=== PATIENT | female | born 1990 | race Caucasian/White ===

== ENCOUNTER 2016-07-03 17:23 | Outpatient (CLI) | payer MEDICAID ==
[2016-07-03 18:21] LABS: BILIRUBIN,URINE NEGATIVE (NEGATIVE); PH,URINE 6.5 PH (5.0-7.5)
[2016-07-03 18:23] VITALS: BP 124/82
[2016-07-03 18:33] LABS: UR CULTURE IF IND NOT INDICATED; WBC,URINE 0-3 /HPF (0-5)
== END 2016-07-03 18:40 | disposition home or self-care (01) ==
LOC: WFO 17:23 → OB 17:25 → WFO 18:40
PROVIDERS: ATTEND Obstetrics & Gynecology
DX: O99.89 Other specified diseases and conditions complicating pregnancy, childbirth and the puerperium (principal); R10.2 Pelvic and perineal pain; Z3A.19 19 weeks gestation of pregnancy
CPT/HCPCS: 81001; 87086; 99213

== ENCOUNTER 2017-08-29 16:14 | Emergency (ER) | payer MEDICAID ==
[2017-08-29 16:21] VITALS: BP 139/93
--- NOTE | 2017-08-29 16:43 | ED Physician Documentation ---
History of Present Illness - Stated complaint Stated Complaint: R EAR PAIN - Chief complaint Chief Complaint: Heent - History obtained from History obtained from: Patient - History of Present Illness Pain level max: 6 Pain level now: 5 - Additonal information Additional information: Patient is a 27-year-old female who has a long-standing history of recurrent ear infections and eustachian tube dysfunction. She has been treated 4 times this year for ear infections. Started having right ear pain again a few days ago. No fevers. Does have some nasal congestion. Is currently on medications for her allergies. Nothing makes the pain better or worse. Has an appointment with ENT in 3 weeks Review of Systems Constitutional: denies: Fever, Chills Throat: denies: Sore throat Respiratory: denies: Cough, Wheezing GI: denies: Abdominal Pain, Nausea, Vomiting, Diarrhea Skin: denies: Rash Musculoskeletal: denies: Neck pain, Back pain Neurologic: denies: Headache PD PAST MEDICAL HISTORY - Past Medical History Past Medical History: No Psych: Anxiety - Past Surgical History HEENT: Myringotomy (tubes) - Present Medications Home Medications: Ambulatory Orders Medication Instructions Recorded Confirmed Amox/Clav 875/125 [Augmentin] 1 each PO Q12H #20 tablet 08/29/17 Cetirizine HCl/Pseudoephedrine 1 each PO BID PRN #30 tab.er.12h 08/29/17 [Zyrtec-D Tablet] predniSONE [Prednisone] 40 mg PO DAILY #10 tablet 08/29/17 - Allergies Allergies/Adverse Reactions: Allergies Allergy/AdvReac Type Severity Reaction Status Date / Time No Known Drug Allergies Allergy Verified 08/29/17 16:21 - Social History Does the pt smoke?: No Smoking Status: Never smoker Does the pt drink ETOH?: Yes Does the pt have substance abuse?: No - Immunizations Immunizations are current?: Yes - POLST Patient has POLST: No PD ED PE NORMAL - Vitals Vital signs reviewed: Yes - General General: Alert and oriented X 3, No acute distress - HEENT HEENT: PERRL, Moist mucous membranes, Pharynx benign, Other (Left tympanic membrane is normal. Right tympanic membrane is erythematous, dull, bulging with loss of landmarks. Canal is normal.) - Neck Neck: Supple, no meningeal sign, No adenopathy - Cardiac Cardiac: RRR, Strong equal pulses - Respiratory Respiratory: No respiratory distress, Clear bilaterally - Derm Derm: Warm and dry - Neuro Neuro: Alert and oriented X 3 - Psych Psych: Normal mood, Normal affect Results - Vitals Vitals: Vital Signs - 24 hr 08/29/17 16:19 Temperature 36.1 C L Heart Rate 87 Respiratory 18 Rate Blood Pressure 139/93 H O2 Saturation 100 Oxygen O2 Source Room air PD MEDICAL DECISION MAKING - ED course Complexity details: considered differential, d/w patient ED course: Patient is a 27-year-old female with what appears to be an acute otitis media. Will place on antibiotics for this. Also has known eustachian tube dysfunction will trial her on steroids, decongestants and allergy medication. We will have her follow-up closely with her doctor for further evaluation and care. She is well-appearing, nontoxic. Afebrile. No evidence of mastoiditis. Patient counseled regarding signs and symptoms for which I believe and urgent re- evaluation would be necessary. Patient with good understanding of and agreement to plan and is comfortable going home at this time This document was made in part using voice recognition software. While efforts are made to proofread this document, sound alike and grammatical errors may occur. - Sepsis Event Vital Signs: Vital Signs - 24 hr 08/29/17 16:19 Temperature 36.1 C L Heart Rate 87 Respiratory 18 Rate Blood Pressure 139/93 H O2 Saturation 100 Oxygen O2 Source Room air Departure - Departure Disposition: 01 Home, Self Care Clinical Impression: Otitis media Qualifiers: Otitis media type: suppurative Chronicity: acute Laterality: right Recurrence: not specified as recurrent Spontaneous tympanic membrane rupture: without spontaneous rupture Qualified Code(s): H66.001 - Acute suppurative otitis media without spontaneous rupture of ear drum, right ear Condition: Good Instructions: ED Otitis Media Acute Adult Follow-Up: Livia Johnson PA-C [Primary Care Provider] - Within 1 week Prescriptions: Amox/Clav 875/125 [Augmentin] 1 each PO Q12H #20 tablet Cetirizine HCl/Pseudoephedrine [Zyrtec-D Tablet] 1 each PO BID PRN #30 tab.er.12h PRN Reason: Nasal Congestion predniSONE [Prednisone] 40 mg PO DAILY #10 tablet Comments: We will try rearranging your medications and see if this helps you. Return if you worsen. This should improve over the next few days. Make sure to follow- up with ENT for further care. Discharge Date/Time: 08/29/17 16:49
[2017-08-29] MEDS: DEXAMETHASONE 10 MG/ML VIAL PO STA (16:46)
== END 2017-08-29 16:49 | disposition home or self-care (01) ==
LOC: ED 16:14
DX: H66.004 Acute suppurative otitis media without spontaneous rupture of ear drum, recurrent, right ear (principal); H69.80 Other specified disorders of Eustachian tube, unspecified ear
CPT/HCPCS: 99283

== ENCOUNTER 2017-10-29 17:51 | Emergency (ER) | payer MEDICAID ==
[2017-10-29 18:44] LABS: BASOPHILS # (AUTO) 0.1 10^3/uL (0.0-0.1); BASOPHILS % (AUTO) 0.6 %; EOSINOPHILS # (AUTO) 0.7 10^3/uL (0.0-0.7); EOSINOPHILS % (AUTO) 8.1 %; HGB - HEMOGLOBIN 13.9 g/dL (12.0-16.0); LYMPHOCYTES # (AUTO) 2.3 10^3/uL (1.5-3.5); LYMPHOCYTES % (AUTO) 26.8 %; MEAN CORPUSCULAR HEMOGLOBIN 29.4 pg (27.0-31.0); MEAN CORPUSCULAR HGB CONC 33.6 g/dL (32.0-36.0); MEAN CORPUSCULAR VOLUME 87.3 fL (81.0-99.0); MEAN PLATELET VOLUME 7.4 fL (7.9-10.8); MONOCYTES # (AUTO) 0.7 10^3/uL (0.0-1.0); NEUTROPHILS # (AUTO) 4.9 10^3/uL (1.5-6.6); NEUTROPHILS % (AUTO) 56.5 %; PLT - PLATELET COUNT 258 10^3/uL (130-450); RED BLOOD COUNT 4.75 10^6/uL (4.20-5.40); RED CELL DISTRIBUTION WIDTH 13.2 % (12.0-15.0); WHITE BLOOD COUNT 8.8 x10^3/uL (4.8-10.8)
[2017-10-29 18:55] LABS: ALBUMIN 4.6 g/dL (3.2-5.5); ALBUMIN/GLOBULIN RATIO 1.5 (1.0-2.2); BILIRUBIN,TOTAL 0.4 mg/dL (0.2-1.0); CALCIUM 9.3 mg/dL (8.5-10.3); CREATININE 0.6 mg/dL (0.4-1.0); TOTAL PROTEIN 7.7 g/dL (6.7-8.2)
[2017-10-29 18:59] LABS: BILIRUBIN,URINE NEGATIVE (NEGATIVE); GLUCOSE, URINE (UA) NEGATIVE (NEGATIVE); KETONES,URINE (UA) NEGATIVE (NEGATIVE); LEUKOCYTE ESTERASE, URINE NEGATIVE (NEGATIVE); NITRITE,URINE NEGATIVE (NEGATIVE); OCCULT BLOOD,URINE SMALL (NEGATIVE); PH,URINE 6.5 PH (5.0-7.5); PROTEIN,URINE NEGATIVE (NEGATIVE); UROBILINOGEN,URINE 0.2 (NORMAL) E.U./dL (NORMAL)
[2017-10-29 19:08] LABS: BACTERIA,URINE None Seen /HPF (None Seen); CLARITY,URINE CLEAR (CLEAR); RBC,URINE None Seen /HPF (0-5); SQUAMOUS EPITHELIAL CELL,UR MOD Squamous (<= Few)
--- NOTE | 2017-10-29 20:22 | Ultrasound Report ---
Reason: with pain Procedure Date: 10/29/2017 Accession Number: [id number] / [id number] Procedure: US - OB First Trimester CPT Code: FULL RESULT: EXAM: FIRST TRIMESTER OBSTETRIC ULTRASOUND (Less than 11 weeks) EXAM DATE: 10/29/2017 07:14 PM. CLINICAL HISTORY: with pain. LMP: 09/13/2017. COMPARISONS: None. TECHNIQUE: Transabdominal and transvaginal ultrasound examination with static image documentation. CLINICAL DATES: EGA 6 weeks 4 days with KIKI 06/20/2018 based on LMP. ASSESSMENT: Gestational Sac: Single intrauterine. Mean gestational sac diameter: 23 mm = 6 weeks 6 days. Embryo: CRL (crown-rump length) 4.1 mm = 6 weeks 1 day. Cardiac activity: 119 beats per minute. Yolk sac: 3 mm. Amniotic fluid: Not accurately assessed at this gestational age. Early placenta: Not visible at this gestational age. Other: 1.7 x 2.1 cm perigestational fluid collection. MATERNAL STRUCTURES: Uterus: Anteverted. Unremarkable. Cervix: Closed. Right Ovary/Adnexa: The ovary measures 3.2 x 2.0 x 2.4 cm, volume 7.6 cc. Normal blood flow. 2.0 x 2.0 x 1.5 cm corpus luteal cyst. Left Ovary/Adnexa: The ovary measures 3.4 x 1.6 x 1.7 cm, volume 4.9 cc. Normal blood flow. 1.7 x 1.4 x 1.1 cm simple cyst. Free Fluid: None. Unremarkable. Other: None. IMPRESSION: 1. Single viable intrauterine at EGA 6 weeks 1 day with KIKI 06/23/2018 based on crown-rump length, which is concordant with clinical dates. 2. Assigned dating is KIKI 06/20/2018 based on LMP. 3. 1.7 x 2.1 cm perigestational fluid collection. RADIA
--- NOTE | 2017-10-29 21:12 | ED Physician Documentation ---
History of Present Illness - Stated complaint Stated Complaint: FEMALE /6 WK OB - Chief complaint Chief Complaint: Abd Pain - Additonal information Additional information: 27-year-old female presents the emergency department with lower abdominal cramping and vaginal spotting since early this morning. The patient reports the cramping has mostly resolved and she is only had very scant episodes of vaginal spotting. The patient denies any focal area of abdominal pain. The patient denies nausea, vomiting, diarrhea or fever or flank pain. Symptoms are described as mild. No other associated symptoms. No triggering factors. Review of Systems Constitutional: denies: Fever Eyes: denies: Discharge Ears: denies: Ear pain Nose: denies: Congestion Cardiac: denies: Chest pain / pressure Respiratory: denies: Dyspnea GI: reports: Abdominal Pain (Abdominal cramps). denies: Abdominal Swelling, Nausea, Vomiting, Constipation : reports: Vaginal bleeding Skin: denies: Rash Musculoskeletal: denies: Neck pain Neurologic: denies: Generalized weakness PD PAST MEDICAL HISTORY - Past Medical History Respiratory: Asthma Psych: Anxiety - Past Surgical History HEENT: Myringotomy (tubes) - Allergies Allergies/Adverse Reactions: Allergies Allergy/AdvReac Type Severity Reaction Status Date / Time No Known Drug Allergies Allergy Verified 10/29/17 17:56 - Social History Does the pt smoke?: No Smoking Status: Never smoker Does the pt drink ETOH?: Yes Does the pt have substance abuse?: No - Immunizations Immunizations are current?: Yes - POLST Patient has POLST: No PD ED PE NORMAL - General General: Alert and oriented X 3, No acute distress - HEENT HEENT: Atraumatic, PERRL, EOMI, Ears normal - Cardiac Cardiac: RRR - Respiratory Respiratory: No respiratory distress, Clear bilaterally - Abdomen Abdomen: Soft, Non tender, Non distended - Derm Derm: Normal color - Extremities Extremities: No deformity - Neuro Neuro: Alert and oriented X 3, Normal speech - Psych Psych: Normal affect Results - Vitals Vitals: Vital Signs - 24 hr 10/29/17 10/29/17 17:54 21:28 Temperature 35.8 C L Heart Rate 103 H 84 Respiratory 16 16 Rate Blood Pressure 132/94 H 129/75 O2 Saturation 100 100 Oxygen O2 Source Room air - Labs Labs: Laboratory Tests 10/29/17 10/29/17 10/29/17 18:10 18:37 18:37 WBC 8.8 RBC 4.75 Hgb 13.9 Hct 41.4 MCV 87.3 MCH 29.4 MCHC 33.6 RDW 13.2 Plt Count 258 MPV 7.4 L Neut # (Auto) 4.9 Lymph # (Auto) 2.3 [place]aston # (Auto) 0.7 Eos # (Auto) 0.7 Baso # (Auto) 0.1 Absolute Nucleated RBC 0.00 Nucleated RBC % 0.0 Sodium 135 Potassium 3.4 L Chloride 102 Carbon Dioxide 25 Anion Gap 8.0 BUN 10 Creatinine 0.6 Estimated GFR (MDRD) 122 Glucose 99 Calcium 9.3 Total Bilirubin 0.4 AST 26 ALT 43 Alkaline Phosphatase 51 Total Protein 7.7 Albumin 4.6 Globulin 3.1 Albumin/Globulin Ratio 1.5 Lipase 31 HCG, Quant Urine Color YELLOW Urine Clarity CLEAR Urine pH 6.5 Ur Specific [place] 1.010 Urine Protein NEGATIVE Urine Glucose (UA) NEGATIVE Urine Ketones NEGATIVE Urine Occult Blood SMALL H Urine Nitrite NEGATIVE Urine Bilirubin NEGATIVE Urine Urobilinogen 0.2 (NORMAL) Ur Leukocyte Esterase NEGATIVE Urine RBC None Seen Urine WBC 0-3 Ur Squamous Epith Cells MOD Squamous H Urine Bacteria None Seen Ur Microscopic Review INDICATED Urine Culture Comments NOT INDICATED Blood Type 10/29/17 10/29/17 18:37 18:37 WBC RBC Hgb Hct MCV MCH MCHC RDW Plt Count MPV Neut # (Auto) Lymph # (Auto) [place]aston # (Auto) Eos # (Auto) Baso # (Auto) Absolute Nucleated RBC Nucleated RBC % Sodium Potassium Chloride Carbon Dioxide Anion Gap BUN Creatinine Estimated GFR (MDRD) Glucose Calcium Total Bilirubin AST ALT Alkaline Phosphatase Total Protein Albumin Globulin Albumin/Globulin Ratio Lipase HCG, Quant 30925.00 Urine Color Urine Clarity Urine pH Ur Specific [place] Urine Protein Urine Glucose (UA) Urine Ketones Urine Occult Blood Urine Nitrite Urine Bilirubin Urine Urobilinogen Ur Leukocyte Esterase Urine RBC Urine WBC Ur Squamous Epith Cells Urine Bacteria Ur Microscopic Review Urine Culture Comments Blood Type A POSITIVE - Rads (name of study) US ob Radiology: Final report received (Single viable intrauterine at EGA 6 weeks 1 day with KIKI. 1.7 x 2.1 cm perigestational fluid collection. ) PD MEDICAL DECISION MAKING - ED course ED course: The patient's ultrasound shows a viable intrauterine , I discussed with the patient the findings on her examination. I recommended nothing per vagina until her symptoms resolved and until she is cleared by OB. The patient understands and agrees. I discussed warning signs and recommended returning to the emergency department immediately for any worsening or concerns. - Sepsis Event Vital Signs: Vital Signs - 24 hr 10/29/17 10/29/17 17:54 21:28 Temperature 35.8 C L Heart Rate 103 H 84 Respiratory 16 16 Rate Blood Pressure 132/94 H 129/75 O2 Saturation 100 100 Oxygen O2 Source Room air Departure - Departure Disposition: 01 Home, Self Care Clinical Impression: Vaginal bleeding affecting early , Abdominal pain affecting Condition: Good Instructions: Preg 1st Trimester, Bleeding Early Preg Follow-Up: Livia Johnson PA-C [Primary Care Provider] - Comments: Please return to the emergency department for any worsening or any concerns.
[2017-10-29 21:28] VITALS: BP 129/75
== END 2017-10-29 21:49 | disposition home or self-care (01) ==
LOC: ED 17:51
DX: O20.9 Hemorrhage in early pregnancy, unspecified (principal); Z3A.01 Less than 8 weeks gestation of pregnancy; O99.89 Other specified diseases and conditions complicating pregnancy, childbirth and the puerperium; R10.30 Lower abdominal pain, unspecified
CPT/HCPCS: 36415; 76801; 76817; 80053; 81001; 81003; 83690; 84702; 85025; 86900; 86901; 87086; 99283

== ENCOUNTER 2018-04-26 20:41 | Outpatient (CLI) | payer MEDICAID ==
[2018-04-26 21:14] VITALS: BP 125/83
== END 2018-04-26 21:42 ==
LOC: WFO 20:41 → FBP 20:44 → WFO 21:42
PROVIDERS: ATTEND Obstetrics & Gynecology
DX: O99.513 Diseases of the respiratory system complicating pregnancy, third trimester (principal); J11.1 Influenza due to unidentified influenza virus with other respiratory manifestations; Z3A.32 32 weeks gestation of pregnancy
CPT/HCPCS: 99212

== ENCOUNTER 2018-04-26 21:55 | Emergency (ER) | payer MEDICAID ==
--- NOTE | 2018-04-26 23:20 | ED Physician Documentation ---
PD HPI URI - Stated complaint Stated Complaint: SOA/HX ASTHMA - Chief complaint Chief Complaint: Resp - History obtained from History obtained from: Patient - History of Present Illness Timing - onset: How many days ago (3) Timing duration: Days (3) Timing details: Gradual onset, Still present Associated symptoms: Nasal congestion, Dry cough, Dyspnea (wheezing). No: Fever, NVD Contributing factors: COPD / asthma (has MDI at home. Had not used it much prior to but has had more asthma symptoms the past few months, and now more with current illness.). No: Sick contact Improves by: No: Medication (not improved with albuterol MDI at home.) Worsened by: Activity Similar symptoms before: Diagnosis (gets asthma exac with URIs in the past.) Recently seen: Not recently seen Review of Systems Constitutional: reports: Myalgias. denies: Fever Nose: reports: Congestion Throat: denies: Sore throat Cardiac: denies: Chest pain / pressure Respiratory: reports: Dyspnea, Cough, Wheezing GI: denies: Vomiting, Diarrhea : reports: Now EGA (22 weeks). denies: Vaginal bleeding Skin: denies: Rash Neurologic: reports: Generalized weakness. denies: Altered mental status, Headache PD PAST MEDICAL HISTORY - Past Medical History Respiratory: Asthma Psych: Anxiety - Past Surgical History Past Surgical History: No HEENT: Myringotomy (tubes) - Present Medications Home Medications: Ambulatory Orders Medication Instructions Recorded Confirmed Albuterol Sulf [Ventolin Hfa 2 - 3 puffs INH Q4HR PRN #1 inhaler 04/27/18 Inhaler] Amiodarone [Pacerone] 100 mg PO DAILY 04/27/18 04/27/18 Amoxicillin 500 mg PO TID #21 capsule 04/27/18 Aspirin 325 mg PO DAILY 04/27/18 04/27/18 Benzonatate [Tessalon Perle] 100 mg PO TID PRN #20 capsule 04/27/18 Dexamethasone [Decadron] 4 mg PO DAILY #7 tablet 04/27/18 Furosemide 20 mg PO DAILY 04/27/18 04/27/18 Hydrochlorothiazide 12.5 mg PO DAILY 04/27/18 04/27/18 Levothyroxine [Synthroid] 50 mcg PO DAILY 04/27/18 04/27/18 Magnesium 250 mg PO DAILY 04/27/18 04/27/18 Metoprolol Succinate [Toprol Xl] 25 mg PO DAILY 04/27/18 04/27/18 Ursodiol [Eladio 250] 250 mg PO DAILY 04/27/18 04/27/18 - Allergies Allergies/Adverse Reactions: Allergies Allergy/AdvReac Type Severity Reaction Status Date / Time No Known Drug Allergies Allergy Verified 10/29/17 17:56 - Social History Does the pt smoke?: No Smoking Status: Never smoker Does the pt drink ETOH?: Yes Does the pt have substance abuse?: No - Immunizations Immunizations are current?: Yes - POLST Patient has POLST: No PD ED PE NORMAL - Vitals Vital signs reviewed: Yes - General General: Alert and oriented X 3, Well developed/nourished, Other (some wheezing, but able to talk in sentences. ) - HEENT HEENT: Ears normal, Pharynx benign - Neck Neck: Supple, no meningeal sign, Other (mild anterior adenopathy) - Cardiac Cardiac: RRR, No murmur - Respiratory Respiratory: No: Clear bilaterally (exp wheezing. No coarse sounds. ) - Abdomen Abdomen: Soft, Non tender, Other (gravid with fundus at umbilicus. ) Results - Vitals Vitals: Vital Signs - 24 hr 04/26/18 04/27/18 04/27/18 21:58 00:10 00:15 Temperature 36.3 C L Heart Rate 100 88 98 Respiratory 20 20 20 Rate Blood Pressure 133/91 H 128/88 H O2 Saturation 100 04/27/18 04/27/18 00:40 00:44 Temperature 36.3 C L Heart Rate 103 H Respiratory 18 16 Rate Blood Pressure 121/87 H O2 Saturation 100 96 Oxygen O2 Source Room air PD MEDICAL DECISION MAKING - ED course Complexity details: considered differential (Seems URI with cough and asthma exac. Given history of asthma, may have some benefit with abx, though more likely viral. ), d/w patient Departure - Departure Disposition: 01 Home, Self Care Clinical Impression: Upper respiratory infection Qualifiers: URI type: unspecified URI Qualified Code(s): J06.9 - Acute upper respiratory infection, unspecified Acute asthma exacerbation Qualifiers: Asthma severity: mild Asthma persistence: intermittent Qualified Code(s): J45.21 - Mild intermittent asthma with (acute) exacerbation Condition: Stable Record reviewed to determine appropriate education?: Yes Prescriptions: Albuterol Sulf [Ventolin Hfa Inhaler] 2 - 3 puffs INH Q4HR PRN #1 inhaler PRN Reason: Shortness Of Air/Wheezing Amoxicillin 500 mg PO TID #21 capsule Benzonatate [Tessalon Perle] 100 mg PO TID PRN #20 capsule PRN Reason: Cough Dexamethasone [Decadron] 4 mg PO DAILY #7 tablet Comments: Stay well-hydrated. Continue your inhaler albuterol inhaler 2-3 puffs 4 times a day regularly and extra times as needed for wheezing and cough. Add Decadron steroid daily for a week. Amoxicillin 3 times a day for a week for possible bacterial infection. This may be just viral which case the other medicines will help. Add Tessalon if needed for cough. These are all fine in at this point. Tylenol if needed for fevers. No NSAIDs. Discharge Date/Time: 04/27/18 00:49
[2018-04-26] MEDS ORDERED: BENZONATATE 100 MG CAPSULE PO STA (23:36)
[2018-04-26] MEDS ORDERED: ALBUTEROL NEB 2.5 MG/3 ML INH STA (23:36)
[2018-04-26] MEDS ORDERED: DEXAMETHASONE 10 MG/ML VIAL PO STA (23:36)
[2018-04-26] MEDS ORDERED: AMOXICILLIN 250 MG CAPSULE PO STA (23:37)
[2018-04-27 00:45] VITALS: BP 121/87
== END 2018-04-27 00:49 | disposition home or self-care (01) ==
LOC: ED 21:55
DX: O99.512 Diseases of the respiratory system complicating pregnancy, second trimester (principal); J45.21 Mild intermittent asthma with (acute) exacerbation; J06.9 Acute upper respiratory infection, unspecified; Z3A.22 22 weeks gestation of pregnancy; Z79.82 Long term (current) use of aspirin
CPT/HCPCS: 94640; 99283; A9270; 99212

== ENCOUNTER 2018-10-05 08:00 | Outpatient (CLI) | payer MEDICAID ==
[2018-10-05 18:37] LABS: BASOPHILS % (AUTO) 0.2 %; EOSINOPHILS # (AUTO) 0.5 10^3/uL (0.0-0.7); EOSINOPHILS % (AUTO) 6.3 %; HGB - HEMOGLOBIN 12.5 g/dL (12.0-16.0); LYMPHOCYTES # (AUTO) 1.2 10^3/uL (1.5-3.5); LYMPHOCYTES % (AUTO) 14.5 %; MEAN CORPUSCULAR HEMOGLOBIN 27.5 pg (27.0-31.0); MEAN CORPUSCULAR HGB CONC 31.6 g/dL (32.0-36.0); MEAN CORPUSCULAR VOLUME 86.8 fL (81.0-99.0); MEAN PLATELET VOLUME 9.8 fL (7.9-10.8); MONOCYTES # (AUTO) 0.5 10^3/uL (0.0-1.0); NEUTROPHILS # (AUTO) 5.9 10^3/uL (1.5-6.6); NEUTROPHILS % (AUTO) 72.8 %; PLT - PLATELET COUNT 247 10^3/uL (130-450); RED BLOOD COUNT 4.55 10^6/uL (4.20-5.40); RED CELL DISTRIBUTION WIDTH 12.9 % (12.0-15.0); WHITE BLOOD COUNT 8.1 x10^3/uL (4.8-10.8)
[2018-10-05 18:57] LABS: RHEUMATOID FACTOR NEGATIVE (Negative)
[2018-10-05 19:00] LABS: ALBUMIN 4.3 g/dL (3.2-5.5); ALBUMIN/GLOBULIN RATIO 1.1 (1.0-2.2); BILIRUBIN,TOTAL 0.6 mg/dL (0.2-1.0); CALCIUM 9.4 mg/dL (8.5-10.3); CREATININE 0.6 mg/dL (0.4-1.0); CRP - C-REACTIVE PROTEIN 9.3 mg/dL (0-1.0); TOTAL PROTEIN 8.3 g/dL (6.7-8.2)
== END 2018-10-05 23:59 | disposition home or self-care (01) ==
LOC: LAB.WCP 08:00
PROVIDERS: ATTEND Physician Assistant Medical
DX: M79.10 Myalgia, unspecified site (principal)
CPT/HCPCS: 36415; 80053; 82306; 84443; 85025; 85651; 86140; 86430

== ENCOUNTER 2021-10-26 18:41 | Emergency (ER) | payer MEDICAID ==
[2021-10-26 18:48] VITALS: BP 128/88
--- NOTE | 2021-10-26 19:00 | ED Physician Documentation ---
History of Present Illness - Stated complaint Stated Complaint: R EAR PX - Chief complaint Chief Complaint: Heent - Additonal information Additional information: 31-year-old female presents emergency department for evaluation of 3 days right ear pain. Reports a history of recurrent inner ear infections. Returned from [place] 1 week ago. She did go swimming. She has had no cough or fevers. No drainage. She does have muffled hearing however. Review of Systems Constitutional: denies: Fever, Chills Ears: reports: Ear pain. denies: Drainage/discharge, Tinnitus/ringing, Foreign body Nose: reports: Reviewed and negative Throat: reports: Reviewed and negative Cardiac: reports: Reviewed and negative PD PAST MEDICAL HISTORY - Past Medical History Respiratory: Asthma Psych: Anxiety - Past Surgical History Past Surgical History: No HEENT: Myringotomy (tubes) - Present Medications Home Medications: Ambulatory Orders Medication Instructions Recorded Confirmed Albuterol Sulf [Ventolin Hfa 2 - 3 puffs INH Q4HR PRN #1 inhaler 04/27/18 10/26/21 Inhaler] DULoxetine [Cymbalta] 40 mg PO DAILY 10/26/21 10/26/21 Fluticasone Propion/Salmeterol 1 puffs INH DAILY 10/26/21 10/26/21 [Fluticasone-Salmeterol 250-50] Montelukast [Singulair] 10 mg PO DAILY 10/26/21 10/26/21 Ofloxacin [Ofloxacin Otic drops] 10 ml OT BID #10 ml 10/26/21 - Allergies Allergies/Adverse Reactions: Allergies Allergy/AdvReac Type Severity Reaction Status Date / Time No Known Drug Allergies Allergy Verified 10/26/21 18:48 - Social History Does the pt smoke?: No Smoking Status: Never smoker Does the pt drink ETOH?: Yes Does the pt have substance abuse?: No - Immunizations Immunizations are current?: Yes - POLST Patient has POLST: No PD ED PE EXPANDED - General General: Alert, No acute distress - HEENT HEENT: Moist mucous membranes, Pharynx normal, Other (Mild erythema and yellow mucopurulent drainage in the right ear canal. The TM is intact without infusion. Unremarkable left ear exam). No: Pharyngeal erythema - Neck Neck: No: Adenopathy Results - Vitals Vitals: Vital Signs - 24 hr 10/26/21 18:44 Temperature 36.1 C L Heart Rate 78 Respiratory 16 Rate Blood Pressure 128/88 H O2 Saturation 98 Oxygen O2 Source Room air PD MEDICAL DECISION MAKING - ED course Complexity details: considered differential, d/w patient ED course: 31-year-old female presents emergency department for evaluation of 3 days of right ear pain. Recently returned from [place] where she had been swimming frequently. Exam is consistent with acute uncomplicated right otitis externa. Will be started on ofloxacin. Routine care and emergent return precautions otherwise discussed Departure - Departure Disposition: 01 Home, Self Care Clinical Impression: Right otitis externa Qualifiers: Otitis externa type: swimmer's ear Chronicity: acute Qualified Code(s): H60.331 - Swimmer's ear, right ear Condition: Stable Record reviewed to determine appropriate education?: Yes Instructions: ED Otitis Externa Prescriptions: Ofloxacin [Ofloxacin Otic drops] 10 ml OT BID #10 ml Comments: You do have a swimmer's ear in the right ear. This is probably from swimming in the ocean while in [place]. Please fill the prescription for the ofloxacin eardrops. Place 5 drops in the right ear twice daily for 7 days. I expect that with the initiation of the antibiotic drops you are having improved pain and discomfort over the next 3 to 7 days. Return to the ER for worsening symptoms, sudden severe pain, loss of hearing or swelling and redness of the right ear.
== END 2021-10-26 19:02 | disposition home or self-care (01) ==
LOC: ED 18:41
DX: H60.331 Swimmer's ear, right ear (principal)
CPT/HCPCS: 99282

== ENCOUNTER 2022-01-01 12:53 | Emergency (ER) | payer MEDICAID ==
[2022-01-01 13:42] VITALS: BP 119/88
[2022-01-01] MEDS ORDERED: AMOXICILLIN 250 MG CAPSULE PO STA (15:48)
--- NOTE | 2022-01-01 15:52 | ED Physician Documentation ---
PD HPI HEENT - Stated complaint Stated Complaint: EAR PX - Chief complaint Chief Complaint: Heent - History obtained from History obtained from: Patient - Additional information Additional information: The patient comes to the emergency department chief complaint of bilateral ear pain, worse on the right. She states this started a few days ago and now, she has congestion and a cough. She states the ear pain has been getting progressively worse though. No fever or chills. No nausea or vomiting. No vertigo. Review of Systems Ten Systems: 10 systems reviewed and negative Constitutional: reports: Reviewed and negative Eyes: reports: Reviewed and negative Ears: reports: Ear pain Nose: reports: Rhinorrhea / runny nose, Congestion Throat: reports: Reviewed and negative Cardiac: reports: Reviewed and negative Respiratory: reports: Reviewed and negative GI: reports: Reviewed and negative : reports: Reviewed and negative Skin: reports: Reviewed and negative Musculoskeletal: reports: Reviewed and negative Neurologic: reports: Reviewed and negative Psychiatric: reports: Reviewed and negative Endocrine: reports: Reviewed and negative Immunocompromised: reports: Reviewed and negative PD PAST MEDICAL HISTORY - Past Medical History Respiratory: Asthma Psych: Anxiety - Past Surgical History Past Surgical History: No HEENT: Myringotomy (tubes) - Present Medications Home Medications: Ambulatory Orders Medication Instructions Recorded Confirmed Albuterol Sulf [Ventolin Hfa 2 - 3 puffs INH Q4HR PRN #1 inhaler 04/27/18 10/26/21 Inhaler] DULoxetine [Cymbalta] 40 mg PO DAILY 10/26/21 10/26/21 Fluticasone Propion/Salmeterol 1 puffs INH DAILY 10/26/21 10/26/21 [Fluticasone-Salmeterol 250-50] Montelukast [Singulair] 10 mg PO DAILY 10/26/21 10/26/21 Ofloxacin [Ofloxacin Otic drops] 10 ml OT BID #10 ml 10/26/21 Amoxicillin 500 mg PO TID 7 Days #21 cap 01/01/22 - Allergies Allergies/Adverse Reactions: Allergies Allergy/AdvReac Type Severity Reaction Status Date / Time No Known Drug Allergies Allergy Verified 01/01/22 13:42 - Social History Does the pt smoke?: No Smoking Status: Never smoker Does the pt drink ETOH?: Yes Does the pt have substance abuse?: No - Immunizations Immunizations are current?: Yes - POLST Patient has POLST: No PD ED PE NORMAL - Vitals Vital signs reviewed: Yes - General General: Alert and oriented X 3, No acute distress, Well developed/nourished - HEENT HEENT: Atraumatic, PERRL, EOMI, Moist mucous membranes, Other (Left tympanic membrane is dull and distended but not read; right tympanic membrane is dull, not distended, erythematous, and thickened. Loss of normal light reflex noted) - Neck Neck: Supple, no meningeal sign - Cardiac Cardiac: RRR, No murmur, Strong equal pulses - Respiratory Respiratory: No respiratory distress, Clear bilaterally - Abdomen Abdomen: Soft, Non tender, Non distended - Derm Derm: Normal color, Warm and dry, No rash - Extremities Extremities: No deformity - Neuro Neuro: Alert and oriented X 3 - Psych Psych: Normal mood, Normal affect Results - Vitals Vitals: Vital Signs - 24 hr 01/01/22 13:38 Temperature 36.3 C L Heart Rate 98 Respiratory 16 Rate Blood Pressure 119/88 H O2 Saturation 99 Oxygen O2 Source Room air PD MEDICAL DECISION MAKING - ED course Complexity details: considered differential, d/w patient ED course: The patient was given first dose of antibiotics here. Departure - Departure Disposition: 01 Home, Self Care Clinical Impression: Acute otitis media Qualifiers: Otitis media type: suppurative Laterality: right Recurrence: non-recurrent Spontaneous tympanic membrane rupture: without spontaneous rupture Qualified Code(s): H66.001 - Acute suppurative otitis media without spontaneous rupture of ear drum, right ear Condition: Stable Instructions: ED Otitis Media Acute Adult Prescriptions: Amoxicillin 500 mg PO TID 7 Days #21 cap Comments: Your right ear appears infected, but your left ear just appears to have some fluid behind the eardrum. A prescription for your antibiotics has been electronically transmitted to the [facility] pharmacy in [place].
== END 2022-01-01 16:08 | disposition home or self-care (01) ==
LOC: ED 12:53
DX: H66.001 Acute suppurative otitis media without spontaneous rupture of ear drum, right ear (principal)
CPT/HCPCS: 99282; 99284; A9270

== ENCOUNTER 2022-11-15 12:17 | Emergency (ER) | payer MEDICAID ==
[2022-11-15 12:28] VITALS: BP 139/85; O2SAT 99
--- NOTE | 2022-11-15 12:42 | ED Physician Documentation ---
History of Present Illness - Stated complaint Stated Complaint: SOA/COUGH/HEAD PX - Chief complaint Chief Complaint: General - Additonal information Additional information: 32-year-old female who was incidentally 21 weeks presents emergency department for evaluation of 10 days of cough cold and congestion. No fevers. Mostly worried she could have a viral bronchitis. Does have a history of asthma and was recently represcribed Flovent and albuterol. States she has been wheezy at home and used the albuterol this morning which helped. She does have movement. No loss of fluids or vaginal bleeding. Denies tobacco, nicotene or cannabis vaping. Does endorse CBD use edibles Review of Systems Constitutional: denies: Fever Nose: reports: Rhinorrhea / runny nose, Congestion Cardiac: denies: Chest pain / pressure, Palpitations Respiratory: reports: Cough, Wheezing. denies: Dyspnea GI: reports: Reviewed and negative : reports: Now EGA Skin: reports: Reviewed and negative Musculoskeletal: reports: Reviewed and negative PD PAST MEDICAL HISTORY - Past Medical History Respiratory: Asthma Psych: Anxiety - Past Surgical History Past Surgical History: No HEENT: Myringotomy (tubes) - Present Medications Home Medications: Ambulatory Orders Medication Instructions Recorded Confirmed Albuterol Sulf [Ventolin Hfa 2 - 3 puffs INH Q4HR PRN #1 inhaler 04/27/18 10/26/21 Inhaler] DULoxetine [Cymbalta] 40 mg PO DAILY 10/26/21 10/26/21 Fluticasone Propion/Salmeterol 1 puffs INH DAILY 10/26/21 10/26/21 [Fluticasone-Salmeterol 250-50] Montelukast [Singulair] 10 mg PO DAILY 10/26/21 10/26/21 Ofloxacin [Ofloxacin Otic drops] 10 ml OT BID #10 ml 10/26/21 Amoxicillin 500 mg PO TID 7 Days #21 cap 01/01/22 - Allergies Allergies/Adverse Reactions: Allergies Allergy/AdvReac Type Severity Reaction Status Date / Time No Known Drug Allergies Allergy Verified 11/15/22 12:22 - Social History Does the pt smoke?: No Smoking Status: Never smoker Does the pt drink ETOH?: Yes Does the pt have substance abuse?: No - Immunizations Immunizations are current?: Yes - POLST Patient has POLST: No PD ED PE NORMAL - General General: Alert and oriented X 3, No acute distress, Well developed/nourished - HEENT HEENT: Atraumatic, Moist mucous membranes - Neck Neck: Supple, no meningeal sign, No adenopathy - Cardiac Cardiac: RRR, No murmur - Respiratory Respiratory: No respiratory distress, Clear bilaterally - Derm Derm: Normal color, Warm and dry, No rash - Extremities Extremities: No deformity - Neuro Neuro: Alert and oriented X 3 Eye Opening: Spontaneous Motor: Obeys Commands Verbal: Oriented GCS Score: 15 Results - Vitals Vitals: Vital Signs - 24 hr 11/15/22 12:22 Temperature 36.6 C Heart Rate 109 H Respiratory 20 Rate Blood Pressure 139/85 H O2 Saturation 99 Oxygen O2 Source Room air - Rads (name of study) cxr Relevant Findings:: EMP independent interpretation of test (No acute cardiopulmonary process.) PD Medical Decision Making - ED course Complexity details: reviewed results ED course: Very well-appearing 32-year-old female presents emergency department for evaluation of cough cold and congestion's been ongoing for 10 days. She is incidentally 21 weeks . Normal heart tones here in the ER. Good movement no loss of vaginal fluids or vaginal bleeding. Chest x-ray is interpreted by myself shows no findings of pneumonia. She is without hypoxia or difficulty breathing. Respiratory PCR is pending. I discussed with patient however this likely represents a viral URI and symptoms can often last 10 to 14 days. The usual emergent return precautions for worsening symptoms was discussed. Departure - Departure Disposition: 01 Home, Self Care Clinical Impression: URI with cough and congestion, History of asthma, and not yet delivered in second trimester Condition: Stable Record reviewed to determine appropriate education?: Yes Comments: Amina you have had cough cold and congestion for about the last 10 days. You do have a history of asthma. A viral panel is pending on you. Encourage you to follow these results online in several hours when they become available. Your chest x-ray today did not show any findings of pneumonia. In general the best treatment for what are suspected to be viral upper respiratory infections is fluids and time. You can take Tylenol for any body aches. Continue your albuterol which you may need to use 3-4 times a day as well as your Flovent for your history of asthma. You can take a single dose or 2 of Sudafed to help with congestion but I do not recommend that you use it longer for than a day or 2. Most viral upper respiratory infections will last on average of about 2 weeks. Reasons to return to the emergency department would be the development of any new fevers higher than 102, difficulty breathing, any concerns with your such as loss of movement, vaginal bleeding or loss of fluids. Please discuss this ED visit with your OB provider as soon as possible. Forms: PCP List
--- OUTSIDE RECORDS SUMMARY | 2022-11-15 13:29 | EXTERNAL MEDICAL SUMMARY RPT | Continuity of Care Document ---
Author Name Unknown Address [address] [place] [address] Phone Organization [place] Address [address] [place] [address] Phone Care Team Providers Care Eyedotter Name Role Phone Lorena Wright Unavailable Unavailable Medications date description facility [facility] Problems date description facility 2022-08-18 00:00 History of pre-eclam psia in prior , currently [facility] 2022-09-08 12:36 Supervision of pregn fredy with other poor reproductive or obs [facility] 2022-09-08 12:36 Unspecified maternal hypertensi on, first trimester [facility] Results/Labs test date facility value unit notes Social History date description facility 2022-08-18 00:00 Never smoked tobacco (finding) [facility] 2022-09-16 00:00 Never smoked tobacco (finding) [facility] 2022-10-21 00:00 Never smoked tobacco (finding) [facility] Vital Signs date measurement value units 2022-08-18 00:00 BMI 23.2 kg/m2 2022-08-18 00:00 BP_diastolic 68 mmHg 2022-08-18 00:00 BP_systolic 126 mmHg 2022-08-18 00:00 heart_rate 101 /min 2022-08-18 00:00 height_metric 167.64 cm 2022-08-18 00:00 height_standard 66 in 2022-08-18 00:00 o2_saturation 98 % 2022-08-18 00:00 weight_metric 65.31 kg 2022-08-18 00:00 weight_standard 143.98 lb 2022-09-16 00:00 BP_diastolic 78 mmHg 2022-09-16 00:00 BP_systolic 138 mmHg 2022-09-16 00:00 heart_rate 94 /min 2022-09-16 00:00 o2_saturation 97 % 2022-09-16 00:00 weight_metric 65.03 kg 2022-09-16 00:00 weight_standard 143.37 lb 2022-10-21 00:00 BMI 23.6 kg/m2 2022-10-21 00:00 BP_diastolic 60 mmHg 2022-10-21 00:00 BP_systolic 118 mmHg 2022-10-21 00:00 heart_rate 98 /min 2022-10-21 00:00 height_metric 167.64 cm 2022-10-21 00:00 height_standard 66 in 2022-10-21 00:00 o2_saturation 99 % 2022-10-21 00:00 weight_metric 66.33 kg 2022-10-21 00:00 weight_standard 146.23 lb
[2022-11-15 13:31] LABS: B. PARAPERTUSSIS- RESP PCR PAN NOT DETECTED; B. PERTUSSIS- RESP PCR PANEL NOT DETECTED; C. PNEUMONIAE- RESP PCR PANEL NOT DETECTED; CORONAVIRUS 229E-RESP PCR NOT DETECTED; CORONAVIRUS HKU1-RESP PCR NOT DETECTED; CORONAVIRUS NL63-RESP PCR NOT DETECTED; CORONAVIRUS OC43-RESP PCR NOT DETECTED; HUMAN METAPNEUMOVIRUS NOT DETECTED; INFLUENZA A- RESP PCR PANEL NOT DETECTED; INFLUENZA B - RESP PCR PANEL NOT DETECTED; M. PNEUMONIAE- RESP PCR PANEL NOT DETECTED; PARAINFLUENZA VIRUS 1 NOT DETECTED; PARAINFLUENZA VIRUS 2 NOT DETECTED; PARAINFLUENZA VIRUS 3 DETECTED; PARAINFLUENZA VIRUS 4 NOT DETECTED; RHINOVIRUS/ENTEROVIRUS DETECTED; RSV- RESP PCR PANEL NOT DETECTED; SARS-CoV-2 -RESP PCR PANEL NOT DETECTED
--- NOTE | 2022-11-15 13:31 | XRAY Report ---
PROCEDURE: Chest 1 View X-Ray INDICATIONS: COUGH X 10 DAYS TECHNIQUE: One view of the chest was acquired. COMPARISON: None. FINDINGS: Surgical changes and devices: None. Lungs and pleura: No pleural effusions or pneumothorax. Lungs are clear. Mediastinum: Mediastinal contours appear normal. Heart size is normal. Bones and chest wall: No suspicious bony lesions. Overlying soft tissues appear unremarkable. IMPRESSION: No acute cardiopulmonary process. No focal infiltrates are seen. Reviewed by: Tyler Alexander MD on 11/15/2022 12:30 PM [facility] Approved by: Tyler Alexander MD on 11/15/2022 12:30 PM [facility]DT Station ID: [id number]
== END 2022-11-15 13:41 | disposition home or self-care (01) ==
LOC: ED 12:17
DX: O99.512 Diseases of the respiratory system complicating pregnancy, second trimester (principal); J06.9 Acute upper respiratory infection, unspecified; Z3A.21 21 weeks gestation of pregnancy
CPT/HCPCS: 87633; 99283; 99284